=== PATIENT | male | born 1955 | race African-American/Black ===

== ENCOUNTER 2018-12-11 07:16 | Day surgery (SDC) | payer MEDICAID ==
[~2018-12-11] VITALS: Ht 165.1 cm; Wt 73.9 kg
[~2018-12-11 07:16] MED LIST: BALANCED SALT IRRIG SOLN COMB1 500ML OP ONE; LISI-648 PO
[2018-12-11] MEDS ORDERED: TROPICAMIDE 1% OPHTH DROPS 15ML LEFTEYE ONE (07:50)
[2018-12-11] MEDS ORDERED: CYCLOPENTOLATE HCL 1% OPHTH DROPS 2ML LEFTEYE ONE (07:50)
[2018-12-11] MEDS ORDERED: PHENYLEPHRINE HCL 10% OPHTH DROPS 5ML LEFTEYE ONE (07:50)
[2018-12-11] MEDS ORDERED: LACTATED RINGERS 1,000 ML IV SCH (08:30)
[2018-12-11] MEDS ORDERED: HYALURONATE SODIUM 14 MG/ML 0.85ML SYRINGE IO ONE ×2 (10:21→11:05)
[2018-12-11] MEDS ORDERED: MIDAZOLAM HCL 2 MG/2 ML VIAL ONE (10:28)
[2018-12-11] MEDS ORDERED: BALANCED SALT IRRIG SOLN 15ML ONE (13:02)
[2018-12-11] MEDS ORDERED: PREDNISOLONE ACETATE 1% OPHTH DROPS 1ML ONE (13:02)
[2018-12-11] MEDS ORDERED: TROPICAMIDE 1% OPHTH DROPS 15ML ONE (13:02)
[2018-12-11] MEDS ORDERED: PHENYLEPHRINE HCL 10% OPHTH DROPS 5ML ONE (13:02)
[2018-12-11] MEDS ORDERED: CIPROFLOXACIN 0.3% OPHTH SOLN 2.5ML ONE (13:02)
[2018-12-11] MEDS ORDERED: NEO/POLYMYX B SULF/DEXAMETH OPHTH OINT 3.5GM ONE (13:02)
[2018-12-11] MEDS ORDERED: LIDOCAINE HCL 2%/EPINEPHRINE 1:100,000 20 ML VIAL INFIL ONE (13:02)
[2018-12-11] MEDS ORDERED: BUPIVACAINE HCL/PF 0.75% (7.5MG/ML) 10ML ONE (13:02)
[2018-12-11] MEDS ORDERED: TETRACAINE 0.5% OPHTH DROPS 4ML ONE (13:02)
[2018-12-11] MEDS ORDERED: LIDOCAINE HCL/PF 2% 20 MG/ML 10ML VIAL ONE (13:02)
[2018-12-11] MEDS ORDERED: CYCLOPENTOLATE HCL 1% OPHTH DROPS 2ML ONE (13:02)
== END 2018-12-11 12:40 | disposition home or self-care (01) ==
LOC: OR 07:16
PROVIDERS: ATTEND Ophthalmology
DX: H25.89 Other age-related cataract (principal); I10 Essential (primary) hypertension; H40.9 Unspecified glaucoma; F17.200 Nicotine dependence, unspecified, uncomplicated
CPT/HCPCS: 66984; J2250; J3490; V2632